=== PATIENT | female | born 2000 | race Caucasian/White ===

== ENCOUNTER 2021-03-17 10:04 | Emergency (ER) | payer BC, SELFPAY ==
--- NOTE | 2021-03-17 10:06 | ED.URI ---
HPI - URI/Sore Throat General Chief Complaint: Upper Respiratory Infection Stated Complaint: Fever, Eye pain, loss of smell, body pain Time Seen by Provider: 03/17/21 10:06 Source: patient and RN notes reviewed History of Present Illness HPI Narrative: Patient is a 20-year-old female who presents the urgent care with complaints of fever, eye pressure, loss of smell for the last 2 days and body aches. Patient states that most of her symptoms started 3 days ago as well as a cough. Patient states that she has been taking Mucinex for her symptoms. Patient denies of any known exposure to Covid. States that she does work with the public and has not had a Covid vaccine. No other acute complaints. No acute distress noted. Patient read the plan of care. Some parts of this dictation were generated by voice recognition software and may contain typographical and/or grammatical inaccuracies. Related Data Allergies Allergy/AdvReac Type Severity Reaction Status Date / Time No Known Allergies Allergy Unverified 03/01/18 15:49 Review of Systems Review of Systems: CONSTITUTIONAL: Reports of fever and chills EYES: Denies visual changes, redness, or discharge. ENT: Reports of facial congestion and loss of smell CARDIOVASCULAR: Denies chest pain, palpitations, or edema. RESPIRATORY: Reports of nonproductive cough without dyspnea GASTROINTESTINAL: Denies abdominal pain, nausea, vomiting, or diarrhea. GENITOURINARY: Denies dysuria or hematuria. SKIN: Denies rash or itching. MUSCULOSKELETAL: Denies back pain, joint pain. Reports body aches NEUROLOGIC: Denies headache, numbness, or weakness. All other systems reviewed are negative, except as documented in HPI. PMFSH Comments At the time of my signature, I reviewed and agree with the nursing past medical, surgical, social, and family history. There is no relevant family history pertinent to the patient complaint. Exam Narrative: GENERAL: This is a well-nourished, well-developed patient, in no apparent distress. HEAD: normocephalic, atraumatic. EYES: PERRL. Sclera clear/white. Vision is grossly intact. EARS: External ears normal, auditory canals clear and without drainage, TMs normal without perforation. Hearing grossly intact. NOSE: External nose normal with no obvious nasal discharge, nares without redness, no rhinorrhea. THROAT: Mucous membranes moist, posterior pharynx clear. Mild postnasal drainage NECK: Neck supple, non-tender without lymphadenopathy, masses or thyromegaly. CARDIOVASCULAR: Regular rate and rhythm without murmurs, gallops, or rubs. RESPIRATORY: Clear to auscultation. Breath sounds equal bilaterally. No wheezes, rales, or rhonchi. SKIN: warm, intact with no suspicious lesions or rash, good texture and turgor. NEURO: awake, alert, and oriented to person, place and time. There were no obvious focal neurologic abnormalities. EXTREMITIES: No clubbing, cyanosis, or edema. Course Vital Signs Vital signs: Vital Signs Temperature 98.9 F 03/17/21 10:09 Pulse Rate 100 03/17/21 10:09 Respiratory Rate 20 03/17/21 10:09 Blood Pressure 120/73 03/17/21 10:09 Pulse Oximetry 99 03/17/21 10:09 Temperature 98.9 F 03/17/21 10:09 Pulse Rate 100 03/17/21 10:09 Respiratory Rate 20 03/17/21 10:09 Blood Pressure 120/73 03/17/21 10:09 Pulse Oximetry 99 03/17/21 10:09 Reviewed MDM - URI/Sore Throat MDM Narrative Medical decision making narrative: Reviewed lab results with the patient she is aware that rapid Covid swab was positive. Patient needs to follow CDC guidelines on recommendations which is 10 days after symptom onset. Advised her to increase her fluid intake and make sure to eat a bland diet. Use Tylenol/ibuprofen as needed for fever and body aches. May continue Mucinex as needed for cough. Use an [id number] antihistamine such as Claritin or Zyrtec daily for symptom relief. Rest. Do not leave your home unless symptoms take you to the emerge
[2021-03-17 10:09] VITALS: BP 120/73; PULSE 100; RESP 20; TEMP 37.2; O2SAT 99
== END 2021-03-17 10:35 | disposition home or self-care (01) ==
PROVIDERS: Emergency Provider Nurse Practitioner Family
DX: U07.1 COVID-19 (principal); Z20.822 Contact with and (suspected) exposure to COVID-19
CPT/HCPCS: 87426; 99213; C9803; G0463